=== PATIENT | female | born 1980 | race Native Hawaiian/Other Pacific Islander ===

== ENCOUNTER 2017-05-06 20:24 | Emergency (ER) | payer OTHER ==
[~2017-05-06] VITALS: Ht 154.9 cm; Wt 62.6 kg
[~2017-05-06 20:24] MED LIST: AMOX500C85 PO; CLARITIN10 M1 OR; OPTIVAR0.05 % OP; TOBRAMYCIN0.3 % OP
== END 2017-05-06 20:43 | disposition home or self-care (01) ==
LOC: ED 20:24
DX: R11.10 Vomiting, unspecified (principal); R50.9 Fever, unspecified
CPT/HCPCS: 99281

== ENCOUNTER 2021-05-12 11:05 | Emergency (ER) | payer OTHER ==
[~2021-05-12] VITALS: Ht 154.9 cm; Wt 62.1 kg
[2021-05-12 11:45] VITALS: BP 114/72; TEMP 97.3
== END 2021-05-12 11:45 | disposition home or self-care (01) ==
LOC: ED 11:05
DX: G62.89 Other specified polyneuropathies (principal)
CPT/HCPCS: 99282

== ENCOUNTER 2021-11-26 08:51 | Outpatient (CLI) | payer OTHER | END 2021-11-26 19:07 | disposition home or self-care (01) | LOC: MAMMO 08:51 | PROVIDERS: ATTEND Family Medicine | DX: N63.20 Unspecified lump in the left breast, unspecified quadrant (principal); N64.4 Mastodynia; N64.9 Disorder of breast, unspecified | CPT/HCPCS: G0279 ==

== ENCOUNTER 2021-12-04 09:18 | Outpatient (CLI) | payer OTHER | END 2021-12-04 18:57 | disposition home or self-care (01) | LOC: US 09:18 | PROVIDERS: ATTEND Family Medicine | DX: R92.8 Other abnormal and inconclusive findings on diagnostic imaging of breast (principal) ==